=== PATIENT | female | born 1990 | race Caucasian/White ===

== ENCOUNTER 2024-08-13 15:36 | Outpatient (AMB) | payer OTHER, SELFPAY ==
--- OUTSIDE RECORDS SUMMARY | 2024-08-13 15:39 | XMS_ITS | Clinical Summary ---
Author Organization [facility] Address [address] [place] [address] Phone Care Team Providers Care Staff Scientist Name Role Phone Hany Lazo Primary Care Provider [phone] Allergies No known active allergies Medications azithromycin (ZITHROMAX) 250 mg tablet TAKE 2 TABLETS BY MOUTH TODAY, THEN TAKE 1 TABLET DAILY FOR 4 DAYS DIRECTED 11/14/2023 Active Encounters Date Type Department Care Team Description 07/18/[address] [facility] - Main Lab [address] [facility] [place] [address] See Loaiza MD Encounter for gynecological examination (general) (routine) without abnormal findings 06/26/2024 10:40 AM EDT Office Visit Gastroenterology [facility] [address] [address] Jacqueline Painter NP Antimitochondrial antibody positive (Primary Dx); Chronic constipation 05/27/2024 Telephone Gastroenterology [facility] 175 [facility] [address] [address] Sheng Hedrick PA from Last 3 Months Surgical History Surgery Date Site/Laterality Comments OTHER SURGICAL HISTORY PROCEDURE: DENIES PREVIOUS SURGERY Medical History Medical History Date Comments Scoliosis DX:Scoliosis; CO MMENT: had epidural w/o prob in previus pregnancies Underweight 06/13/2013 DX:Underweight 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 Family History Medical History Relation Name Comments Other cancer Brother 1 liver Heart attack Maternal Grandfather Other cancer Maternal Grandmother stomach Hypertension Mother Heart attack Paternal Grandfather Diabetes Paternal Grandmother Other cancer Paternal Grandmother pancrea tic Relation Name Status Comments Brother 1 Alive Brother 2 Hepatic Cancer Brother 3 Alive Father Alive healthy Maternal Grandfather heart a ttack Maternal Grandmother Alive Mother Alive Htn Paternal Grandfather Alive Paternal Grandmother heart a ttack Sister 1 Alive Sister 2 Alive Sister 3 Alive Sister 4 Alive Sister 5 Alive Social History Tobacco Use Types Packs/Day Years Used Date Smoking Tobacco: Never Smokeless Tobacco: Never Alcohol Use Standard Drinks/Week Comments No 0 (1 standard drink = 0.6 oz pur e alcohol) Comments Unknown Sex and Gender Information Value Date Recorded Sex Assigned at Not on file Legal Sex Female 7:24 AM EST Gender Identity Not on file Sexual Orientation Not on file Obstetrics History Last Filed Vital Signs Vital Sign Reading Time Taken Comments Blood Pressure 115/75 06/26/2024 10:37 AM EDT Pulse 98 06/26/2024 10:37 AM EDT Temperature - - Respiratory Rate - - Oxygen Saturation 100% 06/26/2024 10:37 AM EDT Inhaled Oxygen Concentration - - Weight 57.6 kg (127 lb) 06/26/2024 10:37 AM EDT Height 162.6 cm (5' 4 ) 06/26/2024 10:37 AM EDT Body Mass Index 21.8 06/26/2024 10:37 AM EDT Plan of Treatment Upcoming Encounters Date Type Department Care Team (Late st Contact Info) Description 09/05/2024 1:50 PM EDT Office Visit Gastroenterology - [place] 175 [facility] 175 [facility] [address] [place] [phone] Criss Moya MD 175 [facility] [address] [place] [address] Health Maintenance Due Date Last Done Comments DTaP,Tdap,and Td Vaccines (1 - Tdap) 07/14/2011 Hepatitis B Vaccines (1 of 3 - 19+ 3-dose series) 07/14/2011 Depression Screening 01/14/2022 HIV Screening 01/14/2022 Social Influencers of Health Screening 01/14/2022 COVID-19 Vaccine (1 - 2023-2 5 season) 2023 Influenza Vaccine (#1) 2024 11/27/2019 Cervical Cancer Screening: P ap Smear 07/18/2027 07/17/2024 Cholesterol Screening (Lipid Panel) 12/12/2028 12/13/2023, 05/31/2023 Hepatitis C Screening Completed 12/13/2023 HIB Vaccines Aged Out No longer eligi ble based on patient's age to complete this topic HPV Vaccines Aged Out No longer eligi ble based on patient's age to complete this topic Hepatitis A Vaccines Aged Out No long er eligible based on patient's age to complete this topic IPV Vaccines Aged Out No longer eligi ble based on patient's age to complete this topic MMR Vaccines Aged Out No longer eligi ble based on patient's age to complete this topic Meningococcal ACWY Vaccine Aged Out N o longer eligible based on patient's age to complete this topic Meningococcal B Vaccine Aged Out No l onger eligible based on patient's age to complete this topic Pneumococcal Vaccine: Pediatrics (0 to 5 Years) and At-Risk Patients (6 to 49 Years) Aged Out No longer eligible b ased on patient's age to complete this topic RSV Immunization Patients Under 20 months Aged Out No longer eligible b ased on patient's age to complete this topic Varicella Vaccines Aged Out No longer eligible based on patient's age to complete this topic Procedures Procedure Name Priority Date/Time Associated Diagnosis Comments PAP SMEAR Routine 07/17/2024 12:00 AM EDT Encounter for gynecological examination (general) (routine) without abnormal findings ALPHA FETOPROTEIN TUMOR MARKER Routine 07/10/2024 12:38 PM EDT Antimitochondrial antibody positive SMOOTH MUSCLE ANTIBODY IGG Routine 07/10/2024 12:38 PM EDT Antimitochondrial antibody positive JUMANA IFA WITH TITER AND PATTERN Routine 07/10/2024 12:38 PM EDT Antimitochondrial antibody positive COMPREHENSIVE METABOLIC PANEL Routine 07/10/2024 12:38 PM EDT Antimitochondrial antibody positive HEPATITIS PANEL, ACUTE WITH REFLEX TO CONFIRMATION Routine 12/13/2023 10:46 AM EST Acid phosphatase elevated LIPID PANEL WITH REFLEX TO DIRECT LDL Routine 12/13/2023 10:46 AM EST Acid phosphatase elevated from Last 3 Months or Most Recently Relevant to Health Maintenance Results * Pap smear (07/17/2024 12:00 AM EDT) Interpretation Negative for intraepithelial lesion or malignancy 07/19/2024 7:24 AM EDT [facility] General Categorization Negative 07/19/2024 7:24 AM EDT [facility] LMP 07/01/2024 07/19/2024 7:24 AM EDT [facility] Specimen Adequacy Satisfactory for evaluation, endocervical/brumfield sformation zone component present 07/19/2024 7:24 AM EDT [facility] Pap Methodology Liquid Based Pap Test 07/19/2024 7:24 AM EDT [facility] Disclaimer The Pap test is a screening test which carries an inherent false negative rate. These test results should be correlated with the patient's clinical findings and history. This Pap test was processed using an automated screening system. Technical cytopathology services provided by [facility], at [address] [place] [address] (CLIA # [id number]/Fortino Perez MD, Warehouse Person.) 07/19/2024 7:24 AM EDT [facility] Console Pap Interpretation Reported 07/19/2024 7:24 AM EDT [facility] Brushing/Spatula Cervix uteri structure / Unknown 07/17/2024 07/18/2024 6:43 AM EDT us See Loaiza MD LAB CYTOLOGY ORDERABLES Final Result [facility] [address] [place] [address], [place] [phone] * JUMANA IFA with titer and pattern (07/10/2024 12:38 PM EDT) JUMANA Negative Negative 07/11/2024 2:48 PM EDT [facility] Blood Venous blood specimen / Unknown Venipuncture / Unknown 07/10/2024 12:38 PM EDT 07/10/2024 12:41 PM EDT Narrative [facility] - 07/11/2024 2:48 PM EDT JUMANA appears negative, however there is a strong cytoplasmic staining present, which may mask a low-level positive JUMANA. Testing for other autoantibodies may be useful if clinically indicated. Jacqueline Painter OFFICIAL COURT INTERPRETER LAB BLOOD ORDERABLES Final Resu lt Performing Organization Address [facility]/ZIP Co de Phone Number [facility] [address] [place] [address], [place] [phone] * Smooth muscle antibody IgG (07/10/2024 12:38 PM EDT) Pathologist [facility] Smooth Muscle (F-Actin) IgG Ab 13 <20 UNITS 07/14/2024 2:20 PM EDT [facility] Comment: Interpretation: Negative Test performed at [facility], [address], [place] [address] Karon Rai MD, PhD - Warehouse Person Blood Venous blood specimen / Unknown Venipuncture / Unknown 07/10/2024 12:38 PM EDT 07/10/2024 12:41 PM EDT Jacqueline Painter OFFICIAL COURT INTERPRETER LAB BLOOD ORDERABLES Final Resu lt [facility] [address] [place] [address] * Alpha fetoprotein tumor marker (07/10/2024 12:38 PM EDT) Pathologist [facility] AFP <2.5 0.0 - 8.0 ng/mL LAB CHEMISTRY METHOD 07/10/2024 3:22 PM EDT [facility] Blood Venous blood specimen / Unknown Venipuncture / Unknown 07/10/2024 12:38 PM EDT 07/10/2024 12:41 PM EDT Narrative [facility] - 07/10/2024 3:22 PM EDT The Siemens Advia Centaur Chemiluminescent Immunoassay is used. Results obtained with different assay methods or kits cannot be used interchangeably. Results cannot be interpreted as absolute evidence of the presence or absence of malignant disease. Jacqueline Painter NP LAB BLOOD ORDERABLES Final Resu lt [facility] [address] [place] [address], * Comprehensive metabolic panel (07/10/2024 12:38 PM EDT) [facility] Sodium 142 133 - 145 mmol/L LAB CHEMISTRY METHOD 07/10/2024 2:46 PM [facility] Potassium 4.5 3.5 - 5.5 mmol/L LAB CHEMISTRY METHOD 07/10/2024 2:46 PM [facility] Chloride 108 96 - 110 mmol/L LAB CHEMISTRY METHOD 07/10/2024 2:46 PM [facility] CO2 27 21 - 32 mmol/L LAB CHEMISTRY METHOD 07/10/2024 2:46 PM [facility] Anion Gap 7 3 - 11 LAB CHEMISTRY METHOD 07/10/2024 2:46 PM [facility] Glucose 80 70 - 100 mg/dL LAB CHEMISTRY METHOD 07/10/2024 2:46 PM [facility] BUN 9 5 - 25 mg/dL LAB CHEMISTRY METHOD 07/10/2024 2:46 PM [facility] Creatinine 0.70 0.50 - 1.10 mg/dL LAB CHEMISTRY METHOD 07/10/2024 2:46 PM [facility] eGFR 119 >=60 mL/min/1. 73m2 LAB CHEMISTRY METHOD 07/10/2024 2:46 PM [facility] Comment:Calculation based on the Chronic Kidney Disease Epidemiology Collaboration (CKD-EPI) equation refit without adjustment for race. BUN/Creatinine Ratio 12.9 LAB CHEMISTRY METHOD 07/10/2024 2:46 PM [facility] Calcium 9.1 8.5 - 10.5 mg/dL LAB CHEMISTRY METHOD 07/10/2024 2:46 PM [facility] AST (SGOT) 19 10 - 42 unit/L LAB CHEMISTRY METHOD 07/10/2024 2:46 PM [facility] ALT (SGPT) 20 10 - 60 unit/L LAB CHEMISTRY METHOD 07/10/2024 2:46 PM [facility] Alkaline Phosphatase 50 42 - 121 unit/L LAB CHEMISTRY METHOD 07/10/2024 2:46 PM [facility] Total Protein 7.7 6.0 - 8.0 g/dL LAB CHEMISTRY METHOD 07/10/2024 2:46 PM [facility] Albumin 4.3 3.2 - 5.0 g/dL LAB CHEMISTRY METHOD 07/10/2024 2:46 PM [facility] Total Bilirubin 0.5 0.0 - 1.4 mg/dL LAB CHEMISTRY METHOD 07/10/2024 2:46 PM [facility] Blood Venous blood specimen / Unknown Venipuncture / Unknown 07/10/2024 12:38 PM EDT 07/10/2024 12:41 PM EDT Jacqueline Painter NP LAB BLOOD ORDERABLES Final Resu lt [facility] [address] [place] [address], [place] [phone] * Lipid panel with reflex to direct LDL (12/13/2023 10:46 AM EST) Cholesterol 154 0 - 200 mg/dL LAB CHEMISTRY METHOD 12/13/2023 2:17 PM EST [facility] Triglycerides 46 0 - 150 mg/dL LAB CHEMISTRY METHOD 12/13/2023 2:17 PM EST [facility] HDL 57 >=40 mg/dL LAB CHEMISTRY METHOD 12/13/2023 2:17 PM EST [facility] LDL Calculated 88 0 - 100 mg/dL LAB CHEMISTRY METHOD 12/13/2023 2:17 PM EST [facility] VLDL Cholesterol Adilson 9.2 mg/dL LAB CHEMISTRY METHOD 12/13/2023 2:17 PM EST [facility] Non HDL Chol. (LDL+VLDL) 97 <145 mg/dL LAB CHEMISTRY METHOD 12/13/2023 2:17 PM EST [facility] Chol/HDL Ratio 2.7 0.0 - 4.4 LAB CHEMISTRY METHOD 12/13/2023 2:17 PM EST [facility] Blood Venous blood specimen / Unknown Venipuncture / Unknown 12/13/2023 10:46 AM EST 12/13/2023 10:46 AM EST Sheng NICHOLS LAB BLOOD ORDERABLES Final Resu lt [facility] [address] [place] [address], [place] [phone] * Hepatitis panel, acute with reflex to confirmation (12/13/2023 10:46 AM EST) Hepatitis B Surface Ag Negative Negative LAB CHEMISTRY METHOD 12/13/2023 2:27 PM EST [facility] Hepatitis A Antibody IgM Negative Negative LAB CHEMISTRY METHOD 12/13/2023 2:27 PM EST [facility] Hep B Core IgM Negative Negative LAB CHEMISTRY METHOD 12/13/2023 2:27 PM EST [facility] Hepatitis C Antibody Negative Negative LAB CHEMISTRY METHOD 12/13/2023 2:27 PM EST [facility] Blood Venous blood specimen / Unknown Venipuncture / Unknown 12/13/2023 10:46 AM EST 12/13/2023 10:46 AM EST us Sheng NICHOLS LAB BLOOD ORDERABLES Final Resu lt [facility] [address] [place] [address], [place] [phone] from Last 3 Months or Most Recently Relevant to Health Maintenance Insurance [facility] Care Teams Staff Scientist Relationship Specialty Start Date End Date Hany Lazo DO [address] [place] [id number] PCP - General Internal Medicine 10/13/21
--- OUTSIDE RECORDS SUMMARY | 2024-08-13 15:39 | XMS_ITS | Clinical Summary ---
Author Organization [facility] Address [address] [place] [address] Care Team Providers Care Software Applications Developer Name Role Phone Unavailable Primary Care Provider Unavailabl e Social History Tobacco Use Types Packs/Day Years Used Date Smoking Tobacco: Never Assessed Sex and Gender Information Value Date Recorded Sex Assigned at Female 06/04/2019 12:46 PM EDT Gender Identity Not on file Sexual Orientation Not on file Job Start Date Occupation Industry Not on file Not on file Not on file Plan of Treatment Not on file
--- NOTE | 2024-08-13 15:45 | A.OFFPC_ITS ---
Vital Signs 08/13/24 15:50 Height 5 ft 4 in Weight 127 lb 6 oz BMI 21.9 BP 120/80 Blood Pressure Location Lt brachial Position Sitting Pulse 92 Pulse Source Pulse Oximeter Pulse Oximetry (%) 99 Oxygen Delivery Method Room Air Intake Visit Reasons: establish care Vocational Placement Specialist Required: No Accompanied by: Self / Same As Patient Allergies No Known Allergies Allergy (Verified 08/13/24 16:21) Medication List - Last Reconciled 08/13/24 by Calixto Lisa MD No Known Home Meds Tobacco use date assessed: 08/13/24 Dental Screening Dental Screen Date: 08/13/24 Did you have a dental visit in the last 12 months?: No Did you have a dental problem in the last 6 months where you did not have access to dental care?: No Was dental information given to patient?: No HPI establish care HPI Details Patient comes in today to establish care - is a new patient to the practice States that her previous PCP was at [place] but she had to foreign exchange trader due to insurance issues Relates that she was diagnosed with PBC at [facility] about 1 to 2 years ago and she would like to see about getting a referral to see a liver specialist in [place] for further evaluation and management of her condition States that she just had some follow up labs done at [place] about a month ago and recalls that her LFTs were normal at the time Patient states that she feels well otherwise and does not have any other signi ficant medical issues or conditions She's had 3 children, all of whom were delivered normally and she's had no significant surgical history as well She denies any headaches or dizziness Denies any chest pains, no shortness of breath No nausea/vomiting, no abdominal pain No change in bowel habits noted [facility] Medical History (Updated 08/13/24 @ 16:22 by Calixto Lisa MD) Primary biliary cholangitis Surgical History (Updated 08/13/24 @ 16:26 by Calixto Lisa MD) No pertinent past surgical history Family History (Updated 08/13/24 @ 15:53 by NICHOLAS Corbett) Other Heart attack Liver cancer Pancreatic cancer Stomach cancer Type 2 diabetes mellitus Social History Housing: House Patient Tobacco Use Status: Never used Tobacco e-Cigarette/Vaping Use: Never Used Second Hand Smoke Exposure: No service: No Current occupational status: employed Current occupational exposures/hazards: No Cognitive needs: No Hearing needs: No Vision needs: No Female Reproductive History Menstrual Total pregnancies: 3 Full term: 3 Premature: 0 Number of Living Children: 3 Questionnaire PHQ-9 Over the last 2 weeks, how often have you been bothered by any of the following problems? 1. Little interest or pleasure in doing things: not at all 2. Feeling down, depressed, or hopeless: not at all 3. Trouble falling or staying asleep, or sleeping too much: not at all 4. Feeling tired or having little energy: not at all 5. Poor appetite or overeating: not at all 6. Feeling bad about yourself - or that you are a failure or have let yourself or your family down: not at all 7. Trouble concentrating on things, such as reading the newspaper or watching television: not at all 8. Moving or speaking so slowly that other people could have noticed. Or the opposite - being so fidgety or restless that you have been moving around a lot more than usual: not at all 9. Thoughts that you would be better off or of hurting yourself in some way: not at all Total score: 0 Depression Screening Interpretation: Negative Depression Screening Done: Yes 59397 - PHQ-9 Billing: Yes Source: Developed by Drs. Matt Tavarez, Alexandrea Fernandez, Cj Machuca and colleagues, with an educational bev from [employer]. Thrive Questionnaire Date Thrive assessed: 08/13/24 I am a: Patient What is your living situation today?: I have a steady place to live Within the past 12 months, did the food you bought not last and you didn't have the money to get more?: Never true Within the past 12 months, did you worry whether your food would run out before you got money to buy more?: Never true Do you have trouble paying for medicines?: No Do you have trouble getting transportation to medical appointments?: No Do you have trouble paying your heating and electricity bill?: No Do you have trouble taking care of your child, family member or friend?: No Do you have trouble with day-to-day activities such as bathing, preparing meals, shopping, managing finances, etc.?: No Are you currently unemployed and looking for a job?: No Are you interested in more education?: No Please select the resources that you would like help with: None Currently or been in a relationship where the following occur: No concerns reported THRIVE Score: 0 AUDIT C Alcohol Use Questionnaire (AUDIT-C) 1. How often do you have a drink containing alcohol?: Never 3. How often do you have six or more drinks on one occasion?: Never Total Score: 0 Score Reviewed/Action Taken: Yes TERRENCE-7 AMB Questionnaire TERRENCE-7 Date TERRENCE - 7 assessed: 08/13/24 Feeling nervous, anxious, or on edge: 0 = Not at all Not being able to stop or control worryin = Not at all Worrying too much about different things: 0 = Not at all Trouble relaxin = Not at all Being so restless that it is hard to sit still: 0 = Not at all Becoming easily annoyed or irritable: 0 = Not at all Feeling afraid as if something awful might happen: 0 = Not at all Total TERRENCE-7 score (0-4 normal; 5-9 mild; 10-14 moderate; 15-21 severe): 0 Source: Developed by Drs. Matt Tavarez, Alexandrea Fernandez, Cj Machuca and colleagues, with an educational bev from [employer]. Review of Systems Const Denies chills, Denies fatigue, Denies fever(s) and Denies headache(s) ENT Denies dysphagia, Denies dizziness, Denies otalgia, Denies headache(s), Denies neck pain, Denies odynophagia and Denies sore throat Card Denies chest pain, Denies palpitations and Denies dyspnea Resp Denies chest congestion, Denies cough and Denies dyspnea GI Denies abdominal pain, Denies constipation, Denies dysphagia, Denies heartburn, Denies diarrhea, Denies nausea, Denies odynophagia and Denies vomiting Denies difficulty voiding, Denies nocturia, Denies dysuria and Denies urinary urgency Musc Denies back pain and Denies neck pain Skin/Breast Denies rash Neuro Denies dizziness and Denies headache(s) Endo Denies fatigue and Denies palpitations Physical exam (Primary Care) Vital Signs: Last Vital Signs Pulse 92 08/13/24 15:50 BP 120/80 08/13/24 15:50 Pulse Ox 99 08/13/24 15:50 Oxygen Delivery Method Room Air 08/13/24 15:50 BMI result Body Mass Index 21.9 Tobacco/Smoking Status: Tobacco use Status Tobacco use date assessed 08/13/24 08/13/24 15:54 Patient Tobacco Use Status Never used Tobacco 08/13/24 15:54 e-Cigarette/Vaping Use Never Used 08/13/24 15:54 PHQ-9: PHQ-9 Score PHQ-9: Total score 0 08/13/24 16:23 Depression Screening Interpretation: Negative Thrive Assessment: Date of Thrive Assessment Date Thrive assessed 08/13/24 08/13/24 15:54 Currently or been in a relationship where the following occur: No concerns reported Const General: no acute distress and alert HENMT Ears: TM's normal bilaterally and EAC's normal Throat: Yes posterior oropharynx normal and Yes tonsils normal (no TP congestion) Neck Neck: Yes supple and No lymphadenopathy Thyroid: Thyroid normal Resp Auscultation: clear to auscultation bilaterally, no rales and no wheezes Cardio Rate: regular rate Rhythm: regular rhythm Heart sounds: no murmurs GI Palpation (GI): Soft to palpation and nontender Auscultation: normal bowel sounds General: Yes no CVA tenderness Back/Spine/Pelvis Back: no CVA tenderness Thoracic/Lumbar Spine: No lumbar spinal tenderness Skin Rashes: no rashes Extrem General: Yes no clubbing, cyanosis or edema Coding Level of Care Code New Pt Level 3 (51015) Diagnoses Primary biliary cholangitis K74.3 Additional Codes PHQ-9 - 12684 - PHQ-9 Billing: Yes ([id number]) Assessment & Plan Assessment & Plan (1) Primary biliary cholangitis: Code(s): K74.3 - Primary biliary cirrhosis Category: Medical Plan: Patient states that she was diagnosed with PBC at [facility] about 1 to 2 years ago and she would like to get a referral to see a liver specialist in [place] for further evaluation and management of her condition Relates that she just had some follow up labs done at [place] about a month ago and that her LFTs were normal at the time - will try to get a copy of her recent lab reports sent over for review and documentation As requested, we will refer her to GI in [place] for further evaluation and management of her diagnosed PBC Plan Follow up in 6 months Orders: Referrals Gastroenterology Referral K74.3 - Primary biliary cirrhosis
[2024-08-13 15:50] VITALS: BP 120/80; PULSE 92; O2SAT 99; BMI 21.9
== END 2024-08-13 16:33 | disposition home or self-care (01) ==
LOC: HO.HMCH 15:37
PROVIDERS: PCP Internal Medicine; Visit Provider Internal Medicine
DX: K74.3 Primary biliary cirrhosis (principal)

== ENCOUNTER → 2024-08-13 15:36 | Outpatient (BNVA) | payer OTHER, SELFPAY | PROVIDERS: PCP Internal Medicine; Visit Provider Internal Medicine | DX: K74.3 Primary biliary cirrhosis (principal) | CPT/HCPCS: 96127 ==